=== PATIENT | male | born 1965 | race Caucasian/White ===

== ENCOUNTER 2023-03-29 09:46 | Emergency (ER) | payer BC, SELFPAY ==
[2023-03-29] VITALS (7 sets, daily range): BP systolic 158–187; BP diastolic 97–100; PULSE 55–69; RESP 18–23; TEMP 36.5; O2SAT 94–100; BMI 25.0
--- NOTE | 2023-03-29 10:02 | DI.US.S_ITS ---
PROCEDURE: US PERIPH VENOUS LOW EXTREM RT INDICATIONS: CALF PAIN. RECENT TRAVEL. TECHNIQUE: Real-time imaging, as well as color and pulse Doppler interrogation, were performed of the lower extremity deep veins from the inguinal ligament to the popliteal fossa. COMPARISON: None. FINDINGS: Extensive deep venous thrombosis is seen, which is nearly completely occlusive throughout the femoral vein proximal distal. There is also partially occlusive thrombus seen within the proximal profunda femoris vein. Occlusive thrombosis seen within the popliteal vein. IMPRESSION: Several sites of right lower extremity deep venous thrombosis can be seen. Dictated by: Brian Mendez M.D. on 03/29/2023 at 9:37 Approved by: Brian Mendez M.D. on 03/29/2023 at 9:38
--- NOTE | 2023-03-29 10:27 | DI.RAD.S_ITS ---
PROCEDURE: XR CHEST 1V INDICATIONS: chest pain TECHNIQUE: One view of the chest was acquired. COMPARISON: None. FINDINGS: Surgical changes and devices: None. Lungs and pleura: Lungs are clear. No pleural effusions or pneumothorax. Mediastinum: Mediastinal contours appear normal. Heart size is normal. Bones and chest wall: No suspicious bony lesions. Overlying soft tissues appear unremarkable. IMPRESSION: No acute cardiopulmonary process. Dictated by: Chavez Rivero M.D. on 03/29/2023 at 10:42 Approved by: Chavez Rivero M.D. on 03/29/2023 at 10:42
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
--- NOTE | 2023-03-29 10:56 | DI.CT.S_ITS ---
PROCEDURE: CT ANGIO CHEST PE PROTOCOL INDICATIONS: extensive dvt TECHNIQUE: After the administration of intravenous contrast, 2 mm thick sections acquired from the pulmonary apices to the posterior costophrenic angles. 3-dimensional maximum intensity projection (MIP) coronal and sagittal reformats were then acquired through the thorax. For radiation dose reduction, the following was used: automated exposure control, adjustment of mA and/or kV according to patient size. COMPARISON: None. FINDINGS: Image quality: Excellent. Pulmonary arteries: Small burden of distal segmental to subsegmental pulmonary emboli, mostly within the lower lobes. Lungs and pleura: Lungs are clear. No pleural effusions or pneumothorax. Central and peripheral airways are patent. Mild bronchial thickening. Air trapping in the lung bases. Mediastinum: Heart size is enlarged, without pericardial effusion. No mediastinal or hilar adenopathy. Thoracic aorta is normal in caliber and enhancement. Esophagus is normal in caliber, with small hiatal hernia. Marked coronary artery calcifications for age. Bones and chest wall: No suspicious bony lesions. Ribs and thoracic spine appear intact throughout. Thyroid gland is unremarkable. No axillary or supraclavicular adenopathy. Abdomen: Cholelithiasis without wall thickening or adjacent fat stranding to suggest acute cholecystitis. IMPRESSION: Small burden segmental to subsegmental pulmonary embolus, without evidence of heart strain or infarct. Marked coronary artery calcifications for age. Consider cardiology referral. Dictated by: Chavez Rivero M.D. on 03/29/2023 at 11:54 Approved by: Chavez Rivero M.D. on 03/29/2023 at 11:58
[2023-03-29 11:04] LABS: Add Manual Diff / Slide Review NO; Basophils Absolute Auto 100 /uL (0-100); Eosinophils Absolute Auto 100 /uL (0-450); Eosinophils Percent Auto 2.4 % (2-4); Hematocrit 44.9 % (41-53); Hemoglobin 15.3 g/dL (13.5-17.5); INR 1.1 (0.9-1.3); Lymphocytes Absolute Auto 1700 /uL (1100-4500); Lymphocytes Percent Auto 28.7 % (25-40); Mean Corpuscular Hemoglobin 31.1 PG (26-34); Mean Corpuscular Volume 91.5 fL (80-100); Monocytes Absolute Auto 600 /uL (0-900); Monocytes Percent Auto 10.1 % (3-14); Neutrophils Absolute Auto 3400 /uL (1500-7000); Neutrophils Percent Auto 57.8 % (50-75); Platelet Count 227 X10^3/uL (150-400); Red Blood Cell Count 4.91 X10^6/uL (4.5-5.9); Red Cell Distribution Width 13.3 % (11.6-14.8); White Blood Cell Count 5.8 X10^3/uL (4.5-11.0)
[2023-03-29 11:07] LABS: PTT Partial Thromboplastin Tim 30 SECONDS (26-36)
[2023-03-29] MEDS: APIXABAN 5 MG TABLET 10 MG PO (11:47)
[2023-03-29 12:05] LABS: Alanine Aminotransferase 33 IU/L (<50); Albumin 4.3 g/dL (3.5-5.0); Albumin Globulin Ratio 1.2 (1.0-2.8); Alkaline Phosphatase 59 U/L (38-126); Aspartate Aminotransferase 45 IU/L (17-59); BUN Creatinine Ratio 19.5 (6-22); Blood Urea Nitrogen 15 mg/dL (9-20); Calcium 9.2 mg/dL (8.4-10.2); Carbon Dioxide 27 mmol/L (22-32); Chloride 103 mmol/L (98-107); Creatine Kinase 131 U/L (55-170); Estimated Glomerular Filt Rate > 60 mL/min (>60); Globulin 3.6 g/dL (1.7-4.1); Glucose 104 mg/dL (80-110); HEMOLYSIS 18 (0-50); Lipase 81 U/L (23-300); Magnesium 2.1 mg/dL (1.6-2.3); Potassium 4.1 mmol/L (3.4-5.1); Sodium 139 mmol/L (137-145); Total Protein 7.9 g/dL (6.3-8.2)
[2023-03-29 12:16] LABS: Troponin I < 0.012 ng/mL (0.01-0.034)
--- NOTE | 2023-03-29 15:48 | PC.NURSE ---
Prescription unavailable from [facility]. Called in script w/ Dr. Cornelius permission to [facility] per pt request.
== END 2023-03-29 12:59 | disposition home or self-care (01) ==
PROVIDERS: Emergency Provider Emergency Medicine; PCP Family Medicine
DX: I82.401 Acute embolism and thrombosis of unspecified deep veins of right lower extremity (principal); I26.99 Other pulmonary embolism without acute cor pulmonale; R07.9 Chest pain, unspecified
CPT/HCPCS: 36415; 71045; 71275; 80053; 82550; 83690; 83735; 84484; 85025; 85610; 85730; 93005; 93971; 99284; Q9967

== ENCOUNTER 2025-01-10 13:05 | Emergency (ER) | payer BC, SELFPAY ==
[2025-01-10] VITALS (8 sets, daily range): BP systolic 130–167; BP diastolic 80–84; PULSE 66–77; RESP 16–34; TEMP 36.7–38.1; O2SAT 93–98; BMI 25.7
--- NOTE | 2025-01-10 13:18 | DI.RAD.S_ITS ---
PROCEDURE: XR CHEST 2V INDICATIONS: cough TECHNIQUE: 2 views of the chest were acquired. COMPARISON: [facility], CR, XR CHEST 1V, 03/29/2023, 10:24. FINDINGS: Surgical changes and devices: None. Lungs and pleura: Interstitial markings appear prominent. No pleural effusions or pneumothorax. Mediastinum: Mediastinal contours are normal. Heart size is normal. Bones and chest wall: No suspicious bony abnormalities. Soft tissues appear unremarkable. IMPRESSION: Interstitial markings appear prominent, correlate for pulmonary edema versus atypical infection. Dictated by: Jermaine Moore M.D. on 01/10/2025 at 14:24 Approved by: Jermaine Moore M.D. on 01/10/2025 at 14:25
--- NOTE | 2025-01-10 13:29 | EKG_ITS ---
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
--- NOTE | 2025-01-10 13:51 | ED.GENADULT ---
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 He initially experienced mild throat scratchiness about five days ago, followed by sinus symptoms the next day. Three days ago, he developed a severe sore throat exacerbated by coughing. He reported shortness of breath yesterday, which was present all day, but not today. Obie has a history of bronchitis and tends to develop respiratory issues with colds. He has an inhaler but hasn't used it. He experienced chills and sweats over the last two days. He did have chest tightness. Obie denies palpitations, abdominal pain, nausea, vomiting, or diarrhea. He recently returned from a cruise to [place]. Obie has a history of blood clots and has been taking Eliquis for two years without any recurrence of clots. He denies any leg swelling and keeps a close eye on this. When breathing deeply, Obie feels some discomfort. Related Data Home Medications Medication Instructions Recorded Confirmed amlodipine 5 mg tablet 5 mg PO DAILY 01/10/25 01/10/25 Previous Rx's Medication Instructions Recorded apixaban 5 mg tablet (Eliquis) 5 mg PO BID #60 tabs 04/19/23 Allergies Allergy/AdvReac Type Severity Reaction Status Date / Time No Known Drug Allergies Allergy Verified 01/10/25 13:22 Review of Systems Review of Systems Narrative: All systems reviewed and unremarkable except as noted in the HPI Patient History Social History Smoking Status: Smoker, status unknown Smoking Status: Smoker, status unknown alcohol intake frequency: holidays/special occasions only Exam Narrative Exam Narrative: VS as noted above Focused physical exam as follows: General: Well developed, well nourished, no acute distress HEENT: pink palpebral conjunctiva, anicteric sclera, MICHAEL, mild TP wall erythema but no uvular deviation or posterior pharynx narrowing; moist mucous membranes, no JVD, no cervical lymphadenopathy Lungs: no respiratory distress, clear to auscultation without wheezes or crackles; equal breath sounds Heart: normal rate, regular rhythm, no appreciable murmurs Abdomen: soft, nontender, no rebound or rigidity Musculoskeletal: no gross deformities with full ROM in all extremities, no pedal edema Skin: pink, warm; no rashes Neuro: AAOx3, GCS 15, nonfocal exam Psyche: no SI/HI, normal affect Initial Vital Signs Initial Vital Signs: Vital Signs Temperature 98.1 F 01/10/25 13:18 Pulse Rate 76 01/10/25 13:18 Respiratory Rate 17 01/10/25 13:18 Blood Pressure 139/84 01/10/25 13:18 Pulse Oximetry 97 01/10/25 13:18 Oxygen Delivery Method Room Air 01/10/25 13:18 Course Course Course Narrative: Initial VS noted above. PMHx, PSHx, Medication list, social history reviewed as noted above. Differential diagnosis considered include (but not limited to) the following: strep throat, viral resp illness, pneumonia, bronchitis, tonsillitis, PE, CHF, ACS, cardiac dysrhythmia Pt interviewed and examined. Bedside EKG showed no ST elevation or ectopy. Work up initiated. Strep test noted to be negative. Flu A positive. D-dimer is borderline elevated. Will get CTA chest to rule out PE considering hx of clotting disorder. Pt is a difficult IV start and he has a bad reaction to contrast dye. Discussed minimal risk for PE in the setting of regular use of Eliquis and the confirmed Flu A status likely causing his current symptoms. He agreed to hold off on CTA chest at this time. We discussed risks/benefits of Tamiflu - declines. Stable for discharge with return precautions. Orders Ordered: ED Orders 01/10/25 13:13 Covid-19 + FLU A/B + RSV - PCR Stat 01/10/25 13:18 Chest [XR chest 2V] Stat 01/10/25 13:24 Complete Blood Count AUTO DIFF Stat Comprehensive Metabolic Panel Stat Lactate (Lactic Acid) Stat NT-proBNP (BNP-Adult 18+) Stat Prothrombin Time INR Stat Troponin I Stat Measure peak expiratory flow STAT RT Consult Eval and Treat STAT 01/10/25 13:32 D Dimer Stat Vital Signs Vital signs: Vital Signs - 8 hr 01/10/25 13:18 Temperature 98.1 F Pulse Rate 76 Respiratory Rate 17 Blood Pressure 139/84 Pulse Oximetry 97 Oxygen Delivery Method Room Air Medical Decision Making Lab Data 01/10/25 14:25 01/10/25 14:25 Labs: Lab Results 01/10/25 01/10/25 01/10/25 Range/Units 13:13 14:25 14:35 WBC 3.7 L (4.5-11.0) X10^3/uL RBC 4.73 (4.5-5.9) X10^6/uL Hgb 14.8 (13.5-17.5) g/dL Hct 43.8 (41-53) % MCV 92.5 (80-100) fL MCH 31.2 (26-34) PG MCHC 33.8 (30-36) % RDW 14.1 (11.6-14.8) % Plt Count 190 (150-400) X10^3/uL Neut % (Auto) 54.3 (50-75) % Lymph % (Auto) 23.0 L (25-40) % [place] % (Auto) 20.8 H (3-14) % Eos % (Auto) 0.9 L (2-4) % Baso % (Auto) 1.0 (0-2) % Neut # (Auto) 2000 (8094-6258) /uL Lymph # (Auto) 800 L (6891-4929) /uL [place] # (Auto) 800 (0-900) /uL Eos # (Auto) 0 (0-450) /uL Baso # (Auto) 0 (0-100) /uL PT 16.8 H (9.4-12.5) SECONDS INR 1.5 H (0.9-1.3) D-Dimer 530 H (<500) ng/ml Sodium 137 (137-145) mmol/L Potassium 4.0 (3.4-5.1) mmol/L Chloride 102 (98-107) mmol/L Carbon Dioxide 25 (22-32) mmol/L BUN 13 (9-20) mg/dL Creatinine 0.98 (0.66-1.25) mg/dL Estimated GFR > 60 (>60) mL/min BUN/Creatinine Ratio 13.3 (6-22) Glucose 101 H (70-99) mg/dL Lactate 1.6 (0.7-2.1) mmol/L Calcium 8.3 L (8.4-10.2) mg/dL Total Bilirubin 0.8 (0.2-1.3) mg/dL AST 53 (17-59) IU/L ALT 37 (<50) IU/L Alkaline Phosphatase 53 (38-126) U/L Troponin I < 0.012 (0.01-0.034) ng/mL NT-Pro-B Natriuret Pep 119 (<125) pg/mL Total Protein 7.7 (6.3-8.2) g/dL Albumin 4.3 (3.5-5.0) g/dL Globulin 3.4 (1.7-4.1) g/dL Albumin/Globulin Ratio 1.3 (1.0-2.8) SARS-CoV-2 (PCR) Negative (Negative) Influenza A (RT-PCR) Flu a positive H (NEGATIVE) Influenza B (RT-PCR) Flu b negative (NEGATIVE) RSV (PCR) Negative (Negative) Group A Strep (PCR) Negative (Negative) Imaging Data Chest x-ray: Radiologist's Impression: IMPRESSION: Interstitial markings appear prominent, correlate for pulmonary edema versus atypical infection. ECG Data Attestation: I personally reviewed and interpreted this ECG as follows: (1335 - NSR @ 70; no STTW changes; QTc 425) MDM Narrative Medical decision making narrative: HPI, PMHx, PSHx, Medication list, Allergies, ROS and Focused exam were reviewed above. ?Differential diagnosis as noted below. ?Social determinants affecting care considered. ?All of these were taken into consideration warranting above listed work up. ?Consultations as deemed necessary were documented below (if listed). Labs (if ordered and noted) were independently reviewed by me. Imaging studies (if ordered and noted) were independently reviewed by me EKG (if noted) was independently reviewed by me External documents (if reviewed) are documented above Discharge Plan Departure Patient Disposition: Home Clinical Impression: Influenza A Instructions: DI for Influenza -- Adult Activity Restrictions/Additional Instructions: Work up today showed your symptoms are likely due to the Flu. No antibiotics are indicated at this time. Take Tylenol as needed for fever, pain, headache, sore throat. Drink plenty of fluids. Eat at regular intervals. Return to the ER if with worsening symptoms. Prescriptions: No Action Eliquis 5 mg tablet 5 mg PO BID Qty: 60 1RF amlodipine 5 mg tablet 5 mg PO DAILY Referrals: Julio Cesar Feldman MD [Primary Care Provider] - Stand Alone Forms: Patient Portal/API/Survey
[2025-01-10 14:11] LABS: COVID-19 CEPHEID 4-PLEX PCR Negative (Negative); Influenza A - CEPHEID Flu A POSITIVE (NEGATIVE); Influenza B - CEPHEID Flu B NEGATIVE (NEGATIVE); Respiratory Syncytial Virus Negative (Negative)
[2025-01-10 14:39] LABS: Add Manual Diff / Slide Review NO; Basophils Absolute Auto 0 /uL (0-100); Eosinophils Absolute Auto 0 /uL (0-450); Eosinophils Percent Auto 0.9 % (2-4); Hematocrit 43.8 % (41-53); Hemoglobin 14.8 g/dL (13.5-17.5); Lymphocytes Absolute Auto 800 /uL (1100-4500); Mean Corpuscular HGB Conc 33.8 % (30-36); Mean Corpuscular Hemoglobin 31.2 PG (26-34); Mean Corpuscular Volume 92.5 fL (80-100); Monocytes Absolute Auto 800 /uL (0-900); Monocytes Percent Auto 20.8 % (3-14); Neutrophils Absolute Auto 2000 /uL (1500-7000); Neutrophils Percent Auto 54.3 % (50-75); Platelet Count 190 X10^3/uL (150-400); Red Blood Cell Count 4.73 X10^6/uL (4.5-5.9); Red Cell Distribution Width 14.1 % (11.6-14.8); White Blood Cell Count 3.7 X10^3/uL (4.5-11.0)
[2025-01-10 14:43] LABS: INR 1.5 (0.9-1.3); Prothrombin Time 16.8 SECONDS (9.4-12.5)
[2025-01-10 14:47] LABS: Lactate (Lactic Acid) 1.6 mmol/L (0.7-2.1)
[2025-01-10 14:48] LABS: Alanine Aminotransferase 37 IU/L (<50); Albumin 4.3 g/dL (3.5-5.0); Albumin Globulin Ratio 1.3 (1.0-2.8); Alkaline Phosphatase 53 U/L (38-126); Aspartate Aminotransferase 53 IU/L (17-59); BUN Creatinine Ratio 13.3 (6-22); Bilirubin Total 0.8 mg/dL (0.2-1.3); Blood Urea Nitrogen 13 mg/dL (9-20); Calcium 8.3 mg/dL (8.4-10.2); Carbon Dioxide 25 mmol/L (22-32); Chloride 102 mmol/L (98-107); Estimated Glomerular Filt Rate > 60 mL/min (>60); Globulin 3.4 g/dL (1.7-4.1); Glucose 101 mg/dL (70-99); HEMOLYSIS 22 (0-50); Sodium 137 mmol/L (137-145); Total Protein 7.7 g/dL (6.3-8.2)
[2025-01-10 14:50] LABS: D Dimer 530 ng/ml (<500)
[2025-01-10 14:55] LABS: Strep Grp A by PCR Rapid Negative (Negative)
[2025-01-10 14:59] LABS: NT-proBNP (BNP-Adult 18+) 119 pg/mL (<125); Troponin I < 0.012 ng/mL (0.01-0.034)
== END 2025-01-10 15:38 | disposition home or self-care (01) ==
PROVIDERS: Emergency Provider Emergency Medicine; PCP Family Medicine
DX: J10.1 Influenza due to other identified influenza virus with other respiratory manifestations (principal); Z86.718 Personal history of other venous thrombosis and embolism; Z79.01 Long term (current) use of anticoagulants
CPT/HCPCS: 0241U; 71046; 80053; 83605; 83880; 84484; 85025; 85379; 85610; 87651; 93005; 93010; 99283; 99284